=== PATIENT | female | born 1960 | race Caucasian/White ===

== ENCOUNTER → 2017-07-11 | Outpatient (CLI) | payer BC ==
--- NOTE | 2017-07-11 13:50 | MAMMOGRAPHY REPORT ---
BILATERAL DIGITAL SCREENING MAMMOGRAM TOMOSYNTHESIS WITH CAD: 07/11/2017 CLINICAL HISTORY: Routine screening. Patient has no complaints. TECHNIQUE: Breast tomosynthesis in addition to standard 2D mammography was performed. Current study was also evaluated with a Computer Aided Detection (CAD) system. COMPARISON: Comparison is made to exams dated: 05/03/2016 mammogram, 04/29/2015 mammogram, 04/24/2014 m ammogram, 04/18/2013 mammogram, 04/11/2011 mammogram, and 04/17/2012 mammogram - [facility] nter. BREAST COMPOSITION: The tissue of both breasts is heterogeneously dense, which may obscure small mas ses. FINDINGS: No suspicious masses, calcifications, or areas of architectural distortion are noted in ei ther breast. There has been no significant interval change compared to prior exams. Scattered bilater al benign-appearing calcifications are not significantly changed. Rounded asymmetry in the left late ral breast is stable. IMPRESSION: ACR BI-RADS CATEGORY 2: BENIGN There is no mammographic evidence of malignancy. A 1 year screening mammogram is recommended. The pa tient will receive written notification of the results. Approximately 10% of breast cancers are not detected with mammography. A negative mammographic report should not delay biopsy if a clinically suggestive mass is present. Fe Kwong M.D. /:07/11/2017 11:35:07 Oil Operator: Elvira LEYVAR, M, [facility] letter sent: Normal 1/2 BI-RADS Code: ACR BI-RADS Category 2: Benign
== END | disposition home or self-care (01) ==
LOC: C.MAMM 10:33
PROVIDERS: ATTEND Obstetrics & Gynecology
DX: Z12.31 Encounter for screening mammogram for malignant neoplasm of breast (principal)

== ENCOUNTER 2022-04-20 12:03 | Observation (INO) ==
--- NOTE | 2022-04-19 08:52 | Anesthesiology Consultation ---
Date of Service April 19, 2022 Assessment & Plan (1) Encounter for pre-operative examination: - COVID screening: Per assessment on 04/19: No known COVID-19 positive contacts or current COVID-19 related symptoms. Travel screen negative. Patient vaccinated. Preop Covid test done 04/18 ([place]) is negative. - Preop testing: No preop labs received. Will order CBC, BMP, coags for AM DOS. Chart Review Chart Review: Acceptable Risk for Surgery and Patient NOT seen in Pre Admission Testing History Surgery Operation Date: 04/20/22 13:40 Proposed Procedures p Left Knee Arthroscopy, - Jed Jha MD s Open Reduction Internal Fixation Left Tibial Plateau Fracture with Allograft - Jed Jha MD Height/Weight Height: 5 ft 2 in Weight: 63.503 kg Allergies Allergy/AdvReac Type Severity Reaction Status Date / Time prochlorperazine Allergy Severe Difficulty Verified 04/19/22 07:36 [From Compazine] Breathing Sulfa (Sulfonamide Allergy Severe Blurred Verified 04/19/22 07:36 Antibiotics) Vision promethazine Allergy Intermediate Vomiting Verified 04/19/22 07:36 codeine AdvReac Severe Vomiting Verified 04/19/22 07:36 pantoprazole [From Protonix] AdvReac Severe Diarrhea Verified 04/19/22 07:36 Medications Home Medications Medication Instructions Recorded Confirmed Last Taken fluoxetine 10 mg tablet 10 mg PO HS 10/29/18 04/19/22 10/28/18 ibuprofen 200 mg tablet 600 mg PO UD PRN 10/29/18 04/19/22 10/27/18 21:00 multivitamin (Multiple Vitamins) 1 tab PO HS 12/14/19 04/19/22 Unknown cholecalciferol (vitamin D3) 50 50 mcg PO HS 04/19/22 04/19/22 Unknown mcg (2,000 unit) capsule (Vitamin D3) famotidine 20 mg tablet 20 mg PO HS 04/19/22 04/19/22 Unknown psyllium husk 0.52 gram capsule 1.04 g PO HS 04/19/22 04/19/22 Unknown Past Medical History Medical History Depression GERD (gastroesophageal reflux disease) Hx of gastric ulcer Several years ago Past Family History Family History Father Dementia Mother Family history of reaction to anesthesia "slow to wake up" Past Surgical History Surgical History H/O sinus surgery H/O wisdom tooth extraction History of ankle surgery left ankle arthroscopy and tendon repairs History of colonoscopy History of endometrial ablation History of esophagogastroduodenoscopy (EGD) History of tubal ligation S/P left knee arthroscopy partial menisectomy Social History Smoking Status: Never smoker Do You Dip or Chew Tobacco: No Hx Alcohol Use: Yes Alcohol type: beer, wine and hard liquor alcohol intake frequency: 0-2 drinks per day Hx Substance Use: No substance use type: does not use Testing Electrocardiogram Date: 04/18/22 Findings: + NSR @ (63)
[~2022-04-20 12:03] MED LIST: LR 15ML/HR IV SCH; ceFAZolin 2000MG 2,000 MG/15 ML SYR IV SCH
[2022-04-20 13:28] LABS: Basophils # (auto) 0.05 K/uL (0-0.2); Eosinophils # (auto) 0.18 K/uL (0-0.5); Eosinophils % (auto) 3.8 %; Hemoglobin 12.6 g/dL (12.0-16.0); Immature Granulocytes # (auto) 0.01 K/uL (0.00-0.02); Immature Granulocytes % (auto) 0.2 %; Lymphocytes # (auto) 1.56 K/uL (1.2-3.4); Lymphocytes % (auto) 32.5 %; Mean Corpuscular Hemoglobin 28.9 pg (25-34); Mean Corpuscular Volume 87.2 fL (80-100); Mean Platelet Volume 10.1 fL (7.4-10.4); Monocytes # (auto) 0.44 K/uL (0.11-0.59); Monocytes % (auto) 9.2 %; Neutrophils # (auto) 2.56 K/uL (1.4-6.5); Neutrophils % (auto) 53.3 %; Platelet Count 233 K/uL (130-400); RDW Coefficient of Variation 13.4 % (11.5-14.5); RDW Standard Deviation 43.2 fL (36.4-46.3); Red Blood Count 4.36 M/uL (4.2-5.4)
[2022-04-20 13:48] LABS: BUN Creatinine Ratio 14.5 (10-20); Calcium 9.8 mg/dl (8.5-10.1); Est GFR (African American) 97.4 ml/min; Est GFR (Non-African American) 84.1 ml/min; Potassium 3.8 mmol/L (3.5-5.1)
[2022-04-20 13:49] LABS: Mean Corpuscular Hgb Conc 33.2 g/dL (32-36)
[2022-04-20 13:56] LABS: Partial Thromboplastin Ratio 0.9; Partial Thromboplastin Time 25.5 Seconds (21.0-31.0)
[2022-04-20] MEDS ORDERED: PROPOFOL IV EMULSION 10 MG/ML 20 ML VIAL IV ONE (14:18)
[2022-04-20] MEDS ORDERED: fentaNYL citrate 100 MCG/2 ML VIAL ONE ×4 (14:19→19:13)
[2022-04-20] MEDS ORDERED: MIDAZOLAM HCL 1 MG/ML 2ML VIAL ONE (14:20)
[2022-04-20] MEDS ORDERED: ROPIVACAINE 0.5% 5 MG/ML 30 ML VIAL ONE (14:20)
[2022-04-20] MEDS ORDERED: EPINEPHrine INJ 1 MG/ML AMP ONE ×2 (14:20→14:32)
--- NOTE | 2022-04-20 14:24 | History & Physical Bridge Note ---
Date of Service April 20, 2022 History & Physical Bridge Note I have examined the patient, reviewed the History & Physical and in the interval since the performance of the History & Physical I have noted the following changes of clinical significance: no changes noted
[2022-04-20] MEDS ORDERED: BUPIVACAINE 0.5 % 5 MG/1 ML MPF 30ML VIAL ONE (14:32)
[2022-04-20] MEDS ORDERED: EPINEPHrine HCL INJ 1 MG/ML 30ML ONE (14:32)
[2022-04-20] MEDS ORDERED: SUCCINYLCHOLINE CHLORIDE 20 MG/ML 10 ML VIAL IV ONE (15:17)
[2022-04-20] MEDS ORDERED: CISATRACURIUM BESYLATE IV SOLN 2 MG/ML 10 ML VIAL IV ONE (15:18)
[2022-04-20] MEDS ORDERED: DEXAMETHASONE SOD INJ 4 MG/ML VIAL ONE (15:53)
[2022-04-20] MEDS ORDERED: ONDANSETRON INJ 2 MG/ML 2 ML VIAL ONE (15:53)
[2022-04-20] MEDS ORDERED: HYDROmorphone INJ 1 MG/ML SYRINGE ONE (16:39)
[2022-04-20] MEDS ORDERED: GLYCOPYRROLATE 0.2 MG/ML VIAL ONE (18:21)
[2022-04-20] MEDS ORDERED: NEOSTIGMINE METHYLSULFATE 1 MG/ML 10ML VIAL ONE (18:21)
--- NOTE | 2022-04-20 18:41 | Operative Report ---
Post Operative Report Pre & Post Diagnosis Operation Date: 04/20/22 13:40 Pre-Op Diagnosis: Left knee proximal lateral tibial plateau fracture Large left knee joint effusion Post-Op Diagnosis: Left knee proximal lateral tibial plateau fracture Large left knee joint effusion I identified the patient and participated in the time-out.: Yes Procedure Operation Date: 04/20/22 13:40 Actual Procedures p Left Knee Arthroscopy,(Left) - Jed Jha MD s Open Reduction Internal Fixation Left Tibial Plateau Fracture with Allograft - Anterior compartment fasciotomy Jed Jha MD Surgeon Jed Jha MD Wheat Shipper Mónica Hdz physicians assistant project engineer no resident or fellow was available. Estimated Blood Loss 20 Findings Consistent with Post-Op Diagnosis Specimens None Anesthesia Type General Regional Complications none Disposition Disposition: Recovery Room Indications This is 61. She had an accident and developed a posterior lateral tibial plateau fracture. Imaging showed that there was displacement of up to [address] scan. We talked about her options and she elected to proceed with surgery. This was a difficult decision because she has moderate osteoarthritis which is symptomatic on the medial side of the same knee. After weighing out the options for leaving things as is or surgery she elected to proceed with the operative intervention. Description of Procedure Informed consent obtained. Patient identified. She identified the operative site as the left knee. I marked with my initials. A preoperative surgical timeout was performed. Preop dose of IV antibiotics was given. She was taken to the operating room positioned supine on the OR table a bump was placed under the left hip a tourniquet on the left thigh and a padded post future stressing the knee. The leg was prescribed and prepped and draped in the usual sterile fashion. DVT prophylaxis intraoperatively with mechanical devices postoperatively mobility mechanical devices and Lovenox. The exam demonstrated range of motion from 0 to 120 degrees with gravity she had intact cruciates and collaterals without significant pathological laxity there was a moderate effusion in the knee with some bruising. Inferolateral viewing portal superior lateral outflow portal and inferomedial working portals were established. The hematoma was evacuated. The patella showed some mid grade chondrosis trochlea looked normal the medial compartment had chondrosis of the femoral and tibial condyles. Perhaps far medially on the femoral condyle it was grade 4 but generally it was grade 2 and 3 and diffuse. The medial meniscus was deficient posteriorly there was no tear and I does debrided up some fibrillated meniscus. The ACL and PCL were normal. The femoral articular surface was normal. The tibial articular surface showed irregularity consistent with fracture and diffuse grade 2 chondrosis with extensive softening and fibrillation. The depression really did not look all that bad intraoperatively. There were no significant step-offs more than perhaps 2 mm. This was noted to be posterior lateral and posterior central. The medial lateral gutters were unremarkable. I then went ahead and exsanguinated limb with the Esmarch inflated the tourniquet to 250 mmHg. I made a lateral incision centered over the Sintia's tubercle proceeding parallel to the IT band and down distally to the shaft of the tibia. The skin was incised and the subcutaneous tissues were sharply divided down to the level of the fascia. I then split the IT band directly through Sintia's tubercle and an elevated and anterior and posterior flap taking care to protect the lateral collateral ligament. The patellar tendon insertion was identified and protected. The anterior compartment was elevated off of the lateral tibia. I then performed a fasciotomy of the upper two thirds of the anterior compartment in standard fashion. The fracture fragment superior lateral was identified. I then used a Arthrex ACL guide to drill a guidepin into the central portion of the tibial plateau fracture. This was adjusted x2. I then overreamed the cortex with an 8 mm reamer and then opened up with a 10 mm reamer. This was on the lateral cortex and it was distal to the lateral cortical fracture fragment. I then took a curved awl and under fluoroscopic guidance introduced it into the position of the fracture and carefully tamped the bone up anterior posterior medial and lateral. Particularly posterior and lateral. It was difficult to see fluoroscopically substantial change however I intermittently went back into the knee with the scope and we saw movement of the fragments particularly the posterior lateral fragment and it was noted to be elevated 2 to 3 mm to an anatomical position. The posterior medial fragment was a more challenging but I think I got it back within a millimeter or so of reduction. I then went ahead and took allograft mixed up some Allosyn pure and cancellous chips and packed this into the defect under fluoroscopic guidance and filled the entire defect. I then took a Synthes lateral tibial plate bended as necessary and affixed it to the tibia as far posterior and superior as possible confirmed this fluoroscopically. I then went ahead and inserted a distal cortical screw to hold the plate in place. It was noted that her bone seemed somewhat osteoporotic. I then inserted 2 central conical screws for compression across the fragment. I also made a medial counterincision and applied a clamp across the fracture to compress it. The conical screw was also did the compression. I then inserted 2 distal locking screws and 2 more locking screws proximally and the furthest anterior posterior holes. This was done with fluoroscopic jakub nce. The end result was that the screws were in good position and the fracture was anatomically aligned and stable. Then went ahead and while we are inserting the plate let the tourniquet down there was no significant bleeding. Copious irrigation was done throughout the surgical procedure to keep soft tissues moist another 500 cc of saline was done at the end of the case. I then went ahead back into the knee at the end of the case and confirmed the articular reduction. The lateral meniscus was not torn. We then closed the portals in the counterincision with 4-0 nylon. The iliotibial band was closed down to the level of the anterior compartment with interrupted running #1 Vicryl's covering the plate. The anterior compartment fascia was left open. We then closed the skin in layers with 0 and 2-0 Vicryl followed by hannah. The leg was cleaned wet and dry sponges and a soft sterile dressing was applied Xeroform 4 x 4's ABD soft wrap full-length Nash wrap hinged brace locked in extension. Patient waken from anesthesia without difficulty taken to recovery in stable condition there were no specimens or complications counts were correct and blood loss is estimated to be 20 cc. At the conclusion the operation spoke to patient's informed of my findings postop instructions were given. She will be admitted to the hospital for observation overnight and she will start he r Lovenox in the morning. Nonweightbearing. I attest to the content of the Intraoperative Record and any orders documented therein. Any exceptions are noted below.
--- NOTE | 2022-04-20 18:52 | Operative Report ---
Post Operative Report Pre & Post Diagnosis Operation Date: 04/20/22 13:40 Pre-Op Diagnosis: Left knee proximal lateral tibial plateau fracture Large left knee joint effusion Post-Op Diagnosis: Left knee proximal lateral tibial plateau fracture Large left knee joint effusion I identified the patient and participated in the time-out.: Yes Procedure Operation Date: 04/20/22 13:40 Actual Procedures p Left Knee Arthroscopy(Left) - Jed Jha MD s Open Reduction Internal Fixation Left Tibial Plateau Fracture with Allograft, Anterior Compartment Fasciotomy - Jed Jha MD Surgeon Jed Jha M.D. Green Material Value Added Assessor Mónica Hdz physicians curriculum assistant no resident or fellow was available. Estimated Blood Loss 20 Findings Consistent with Post-Op Diagnosis Specimens None Anesthesia Type General Regional Description of Procedure Patient was taken to the operating room, placed under general anesthesia, given 1 gm IV Ancef for surgical prophylaxis. I was present during the entire case, please see Dr. Jha's operative report for further details. Patient was awakened and taken to the recovery room in stable condition. I attest to the content of the Intraoperative Record and any orders documented therein. Any exceptions are noted below.
[2022-04-20] MEDS ORDERED: ePHEDrine sulfate 50 MG/ML AMP IV PRN (19:14)
[2022-04-20] MEDS ORDERED: ONDANSETRON INJ 2 MG/ML 2 ML VIAL IV PRN (19:14)
[2022-04-20] MEDS ORDERED: ATROPINE SULFATE 0.1 MG/ML 10ML SYR IV PRN (19:14)
[2022-04-20] MEDS: fentaNYL citrate 100 MCG/2 ML VIAL IV PRN ×4 (19:15→19:30)
--- NOTE | 2022-04-20 19:15 | Anesthesiology Progress Note ---
Date of Service April 20, 2022 Anesthesia Post Procedure Vital Signs Vital Signs: Temp Pulse Resp BP Pulse Ox 04/20/22 19:00 75 12 162/84 H 100 04/20/22 18:50 76 17 152/80 H 100 04/20/22 18:42 37 C 83 15 158/81 H 100 04/20/22 12:40 36.4 C L 75 16 134/79 97 Pain Intensity Left Leg: Pain Intensity: 4 Transfer of Care Handoff Completed per policy Notes Mental Status: alert / awake / arousable and participated in evaluation Patient Amnestic to Procedure: Yes Nausea / Vomiting: adequately controlled Pain: improving with treatment Airway Patency, RR, SpO2: stable & adequate BP & HR: stable & adequate Hydration State: stable & adequate Anesthetic Complications: no major complications apparent and Pt Satisfied with anesthetic care
[2022-04-20] MEDS: HYDROmorphone INJ 1 MG/ML SYRINGE IV PRN ×2 (19:36→19:43)
[2022-04-20] MEDS ORDERED: SODIUM CHLORIDE 0.9% 1000ML 1,000 ML IV SCH (20:26)
[2022-04-20] MEDS ORDERED: bisacodyL 10 MG SUPP PR PRN (20:26)
[2022-04-20] MEDS ORDERED: HYDROmorphone INJ 0.5 MG/0.5 ML SYR IV PRN (20:26)
[2022-04-20] MEDS ORDERED: NALOXONE HCL 0.4 MG/1 ML VIAL/CARP IV PRN (20:26)
[2022-04-20] MEDS ORDERED: MAGNESIUM HYDROXIDE SUSP 30 ML UDC PO PRN (20:26)
[2022-04-20] MEDS ORDERED: HYDROmorphone INJ 1 MG/ML SYRINGE IV PRN (20:26)
[2022-04-20] MEDS ORDERED: diphenhydrAMINE 50 MG/ML VIAL IV PRN (20:26)
[2022-04-20] MEDS ORDERED: ALUMINUM/MAGNESIUM SUSP 30 ML UDC PO PRN (20:26)
--- NOTE | 2022-04-20 20:32 | Fluoroscopy Report ---
FL tibia/fibula LT 2V CLINICAL HISTORY: LT ORIF TIBIAL PLATEAU FX TECHNIQUE: 4 views were obtained with the C-arm in the OR with the above procedure. Total fluoroscopy time was 118.8 seconds. Total skin dose was 6 mGy. Comparison: None available at the time of this dictation. FINDINGS/IMPRESSION: Intraoperative images were obtained of open reduction internal fixation of the t ibial plateau fracture. Please correlate with intraoperative fluoroscopy and operative report. ACT 112: Negative or not required by law. Electronically signed by: Blu Fox M.D. 04/20/2022 8:30 PM
[2022-04-20] MEDS: ONDANSETRON INJ 2 MG/ML 2 ML VIAL IV PRN (20:45)
[2022-04-20] MEDS: ACETAMINOPHEN 500 MG TAB PO SCH (21:53)
[2022-04-20] MEDS: DOCUSATE SODIUM 100 MG CAP PO SCH (21:54)
[2022-04-20] MEDS: CHOLECALCIFEROL 1,000 UNITS 25 MCG TAB PO SCH (21:54)
[2022-04-20] MEDS: FLUoxetine HCL 10 MG CAP PO SCH (21:54)
[2022-04-20] MEDS: MULTIVITAMIN TAB PO SCH (21:54)
[2022-04-20] MEDS: PSYLLIUM or GUAR GUM FIBER POWDER PACKET PO SCH (21:55)
[2022-04-20] MEDS: FAMOTIDINE 20 MG TAB PO SCH (21:55)
[2022-04-20] MEDS: SENNA 8.6 MG TAB PO SCH (21:55)
[2022-04-20] MEDS: METOCLOPRAMIDE HCL INJ 5 MG/ML 2 ML VIAL IV PRN (22:19)
[2022-04-20] MEDS: ceFAZolin 1000MG 1,000 MG/7.5 ML SYR IV SCH (22:19)
[2022-04-21] MEDS: ACETAMINOPHEN 500 MG TAB PO SCH ×3 (06:03→21:20)
[2022-04-21] MEDS: ceFAZolin 1000MG 1,000 MG/7.5 ML SYR IV SCH (06:04)
[2022-04-21] MEDS: ENOXAPARIN INJ 30 MG/0.3 ML SYR SQ SCH ×2 (06:04→18:39)
[2022-04-21 07:31] LABS: Hematocrit (blood only) 34.3 % (37-47); Hemoglobin 11.5 g/dL (12.0-16.0); Mean Corpuscular Hemoglobin 29.6 pg (25-34); Mean Corpuscular Hgb Conc 33.5 g/dL (32-36); Mean Corpuscular Volume 88.2 fL (80-100); Mean Platelet Volume 9.9 fL (7.4-10.4); Platelet Count 230 K/uL (130-400); RDW Coefficient of Variation 13.2 % (11.5-14.5); RDW Standard Deviation 42.2 fL (36.4-46.3); Red Blood Count 3.89 M/uL (4.2-5.4); White Blood Count 7.62 K/uL (4.8-10.8)
[2022-04-21 08:07] LABS: BUN Creatinine Ratio 19.1 (10-20); Calcium 8.8 mg/dl (8.5-10.1); Creatinine Clr Calc Pharmacy 74.8 ml/min; Est GFR (African American) 108.7 ml/min; Est GFR (Non-African American) 93.7 ml/min; Potassium 4.1 mmol/L (3.5-5.1)
[2022-04-21] MEDS: DOCUSATE SODIUM 100 MG CAP PO SCH ×2 (08:56→20:10)
[2022-04-21] MEDS ORDERED: MULTIVITAMIN TAB PO SCH (09:00)
[2022-04-21] MEDS: ONDANSETRON INJ 2 MG/ML 2 ML VIAL IV PRN (09:15)
--- NOTE | 2022-04-21 09:34 | Orthopedic Progress Note ---
Date of Service April 21, 2022 Assessment & Plan (1) Tibial plateau fracture, left: Plan: Patient is nonweightbearing on the left lower extremity to the Brace in place. She will need a walker for assistance PT/OT Pain contrDVT prophylaxis with Lovenox Ice with easy wrap Plan on discharging the urinary catheter later today Will discuss results with Dr. Jha and he will most likely see the patient later this afternoon.ol with p.o. pain medication Admission and Anticipated Discharge Date Admission Date: April 20, 2022 Subjective This 61-year-old female is day 1 status post Left Knee Arthroscopy, Open Reduction Internal Fixation Left Tibial Plateau Fracture with Allograft & Anterior compartment fasciotomy, With Dr. Jha yesterday. Patient states she is doing very well. She states that her pain is well controlled with the pain medication she is receiving. Currently she has a hinged knee brace on her left lower extremity with an ice pack of her knee. Currently she denies any chest pain, shortness of breath, fever, chills, sweats, lethargy, numbness or tingling in her left lower extremity. She also denies nausea, vomiting, diarrhea and states that she still has a urinary catheter in place. Review of Systems Review of Systems: All systems reviewed & are unremarkable except as noted in Subjective Physical Exam Physical Exam: Left lower extremity: Brace and dressing were kept in place. Patient is able to flex and knee to about 60 degrees with the brace in place. Passively I was able to get her to 0 degrees of extension without any pain. Patient is able to perform an active straight leg raise test. She is able to actively dorsi and plantarflex her foot without difficulty. Quad strength is 2+ to 3 out of 5. She is able to detect light sensation to touch over the pads of her digits. She is neurovascularly intact in left lower extremity. Results & Data ([facility]) Vital Signs (Past 12 Hours) Vital Signs Temp Pulse Resp BP Pulse Ox 04/21/22 07:04 36.6 C 70 18 131/79 97 04/21/22 03:04 36.7 C 82 16 117/73 96 04/20/22 23:30 36.4 C L 79 16 128/78 100 04/20/22 22:28 36.4 C L 77 16 117/72 100 Diagnostic Findings Laboratory Results WBC 7.62 K/uL (4.8-10.8) 04/21/22 06:42 RBC 3.89 M/uL (4.2-5.4) L 04/21/22 06:42 Hgb 11.5 g/dL (12.0-16.0) L 04/21/22 06:42 Hct 34.3 % (37-47) L 04/21/22 06:42 MCV 88.2 fL (80-100) 04/21/22 06:42 MCH 29.6 pg (25-34) 04/21/22 06:42 MCHC 33.5 g/dL (32-36) 04/21/22 06:42 RDW Std Deviation 42.2 fL (36.4-46.3) 04/21/22 06:42 RDW Coeff of Desiree 13.2 % (11.5-14.5) 04/21/22 06:42 Plt Count 230 K/uL (130-400) 04/21/22 06:42 MPV 9.9 fL (7.4-10.4) 04/21/22 06:42 Immature Gran % (Auto) 0.2 % 04/20/22 13:06 Neut % (Auto) 53.3 % 04/20/22 13:06 Lymph % (Auto) 32.5 % 04/20/22 13:06 [place] % (Auto) 9.2 % 04/20/22 13:06 Eos % (Auto) 3.8 % 04/20/22 13:06 Baso % (Auto) 1.0 % 04/20/22 13:06 Neut # (Auto) 2.56 K/uL (1.4-6.5) 04/20/22 13:06 Lymph # (Auto) 1.56 K/uL (1.2-3.4) 04/20/22 13:06 [place] # (Auto) 0.44 K/uL (0.11-0.59) 04/20/22 13:06 Eos # (Auto) 0.18 K/uL (0-0.5) 04/20/22 13:06 Baso # (Auto) 0.05 K/uL (0-0.2) 04/20/22 13:06 Immature Gran # (Auto) 0.01 K/uL (0.00-0.02) 04/20/22 13:06 PT 11.0 Seconds (9.0-12.0) 04/20/22 13:06 INR 1.0 (0.9-1.1) 04/20/22 13:06 APTT 25.5 Seconds (21.0-31.0) 04/20/22 13:06 PTT Ratio 0.9 04/20/22 13:06 Sodium 136 mmol/L (136-145) 04/21/22 06:42 Potassium 4.1 mmol/L (3.5-5.1) 04/21/22 06:42 Chloride 103 mmol/L (98-107) 04/21/22 06:42 Carbon Dioxide 26 mmol/L (21-32) 04/21/22 06:42 Anion Gap 7 (3-11) 04/21/22 06:42 BUN 13 mg/dl (6-23) 04/21/22 06:42 Creatinine 0.68 mg/dl (0.6-1.2) 04/21/22 06:42 Est Cr Clr Drug Dosing 74.8 ml/min 04/21/22 06:42 Est GFR ( Amer) 108.7 ml/min 04/21/22 06:42 Est GFR (Non-Af Amer) 93.7 ml/min 04/21/22 06:42 BUN/Creatinine Ratio 19.1 (10-20) 04/21/22 06:42 Glucose 115 mg/dl (70-99(Fasting)) H 04/21/22 06:42 Calcium 8.8 mg/dl (8.5-10.1) 04/21/22 06:42 Impressions Tibia/Fibula X-Ray 04/20/22 13:40 FL tibia/fibula LT 2V CLINICAL HISTORY: LT ORIF TIBIAL PLATEAU FX TECHNIQUE: 4 views were obtained with the C-arm in the OR with the above procedure. Total fluoroscopy time was 118.8 seconds. Total skin dose was 6 mGy. Comparison: None available at the time of this dictation. FINDINGS/IMPRESSION: Intraoperative images were obtained of open reduction internal fixation of the tibial plateau fracture. Please correlate with intraoperative fluoroscopy and operative report. ACT 112: Negative or not required by law. Electronically signed by: Blu Fox M.D. 04/20/2022 8:30 PM
[2022-04-21] MEDS: METOCLOPRAMIDE HCL INJ 5 MG/ML 2 ML VIAL IV PRN (09:55)
[2022-04-21] MEDS: PROMETHAZINE HCL 12.5 MG in SODIUM CHLORIDE 0.9% 50 ML IV PRN ×2 (13:43→21:18)
--- NOTE | 2022-04-21 14:07 | Discharge Summary ---
Date of Service April 21, 2022 Discharge Data Procedures Performed Operation Date: 04/20/22 13:40 Actual Procedures p Left Knee Arthroscopy(Left) - Jed Jha MD s Open Reduction Internal Fixation Left Tibial Plateau Fracture with Allograft, Anterior Compartment Fasciotomy - Jed Jha MD Hospital Course (1) Tibial plateau fracture, left: Patient was admitted to [facility] for observation after undergoing a left knee arthroscopy, open reduction internal fixation of left tibial plateau fracture on 04/20/[address] Jed Jha. Her surgery was performed with general anesthesia and peripheral nerve block. She was given 1 gm IV ancef for surgical prophylaxis, which was continued for 24 hours postoperatively. She tolerated the procedure well without any intra-operative complications. Postoperatively she was allowed out of bed, non weight bearing left lower extremity. She was place in a hinged ROM brace and used a walker for assistance with ambulation. She was given a regular diet postoperatively. Her regular home medications were continued. On post operative day 1 she did develop post op nausea with vomiting. She was treated with Zofran, Reglan and phenergan. She eventually did start to feel better the afternoon of post op Day 1 after the phenergan. She was evaluated by PT and OT and did well out of bed and maintaining non weight bearing on her left leg. She was given ice and instructed to elevate her left leg as needed for pain/swelling. She was allowed for left hip and left leg as tolerated. She was given IV dilaudid, tylenol, oxycodone to take as needed for pain. Case management evaluated her for any home needs. She has a walker, crutches or wheelchair for use at home. She was given Lovenox 30 mg BID for DVT prophylaxis, which was started on 04/21/22. Her brace was to remain on at all times. On post operative day 2, she felt much better and was ready for discharge to her home. She was discharged to her home on 04/22/22 in stable condition with her . She will follow up as scheduled on 04/25/22 for recheck.
--- NOTE | 2022-04-21 14:49 | Progress Notes ---
DATE OF SERVICE: 04/21/2022 Stacy is seen in conjunction with the physician's registered dental assistant. For further details, refer to his dictati on. He and I saw and evaluated the patient together, I am in agreement with the plan. Stacy is updated about her surgical findings. X-rays are reviewed. Her Iyer catheter is out. She i s on Lovenox. She has significant nausea. She denies any abdominal pain. She has been throwing up. She has been passing gas. We went over adjustment of her brace. She has 5/5 ankle and toe plantar flexion, dorsiflexion, inversion and eversion strength. Normal sensation and 2+ dorsalis pedis pulse . Plan is to continue her admission as she is not able to tolerate p.o. Phenergan seems to have hel ped with her nausea and we will continue that. She will do some clear liquids and bland food for now very minimally. We will keep her here until tomorrow and reassess and discharge if appropriate. Dipesh hatfield is nonweightbearing on her left leg. Surgical findings are reviewed and discussed. Job ID: [id number]
[2022-04-21] MEDS: oxyCODONE HCL IR 5 MG TAB (IMMEDIATE RELEASE) PO PRN ×2 (15:53→21:20)
[2022-04-21] MEDS: FAMOTIDINE 20 MG TAB PO SCH (20:10)
[2022-04-21] MEDS: CHOLECALCIFEROL 1,000 UNITS 25 MCG TAB PO SCH (20:10)
[2022-04-21] MEDS: MULTIVITAMIN TAB PO SCH (20:11)
[2022-04-21] MEDS: FLUoxetine HCL 10 MG CAP PO SCH (20:11)
[2022-04-21] MEDS: SENNA 8.6 MG TAB PO SCH (20:11)
[2022-04-21] MEDS: PSYLLIUM or GUAR GUM FIBER POWDER PACKET PO SCH (20:11)
[2022-04-22] MEDS: ACETAMINOPHEN 500 MG TAB PO SCH ×2 (05:48→13:14)
--- NOTE | 2022-04-22 08:19 | Progress Notes ---
DATE OF SERVICE: 04/22/2022 Her nausea and vomiting has resolved. She has been able to tolerate p.o. Her gross neurovascular fu nction is intact. Her pain in the left knee is well controlled. There is an issue with her Bernadine carrillo ready at [facility] and if it is not, she will call my and I will send it to a different pharmacy. Otherwise, she is stable for discharge. She has crutches, walker and wheelchair at home. If there are any problems with pain, fever, swelling, or any other problems or questions, call the office or g o to the Emergency Room. She will follow up on Sunday and will evaluate her there and change her dr kan. She is nonweightbearing on the left leg. Leave the brace intact. Job ID: [id number]
[2022-04-22] MEDS: ENOXAPARIN INJ 30 MG/0.3 ML SYR SQ SCH (08:30)
[2022-04-22] MEDS: DOCUSATE SODIUM 100 MG CAP PO SCH (08:30)
[2022-04-22] MEDS: oxyCODONE HCL IR 5 MG TAB (IMMEDIATE RELEASE) PO PRN (13:13)
== END 2022-04-22 13:47 | disposition home or self-care (01) ==
LOC: 3W 12:03 → ASU 12:03